=== PATIENT | female | born 2000 | race Two or more races ===

== ENCOUNTER 2020-05-03 20:13 | Emergency (ER) | payer OTHER, SELFPAY ==
[2020-05-03 20:14] VITALS: BP 136/85; PULSE 89; RESP 16; TEMP 36.4; BMI 36.0
--- NOTE | 2020-05-03 20:17 | RAD_ITS ---
STUDY: X-RAY - LEFT ANKLE REASON FOR EXAM: Female, 19 years old. patient twisted left ankle while roller skating TECHNIQUE: 3 view(s) of the ankle. COMPARISON: None. FINDINGS: Normal visualized distal tibia and fibula. Normal medial and lateral malleoli. Normal tibiotalar articulation and ankle mortise. Normal visualized talus and calcaneus. The visualized subtalar, talonavicular, calcaneocuboid and tarsal articulations are normal. The soft tissue structures are edematous laterally. RAD/Ankle min 3 Views IMPRESSION: No acute osseous injury. Possibly lateral soft tissue injury. Electronically Signed: Radha Palacio, at 20:53 EDT Tel , Service support ,
--- NOTE | 2020-05-03 20:55 | ED.DEP ---
ED Disposition - Plan for ED Patient: Instructions: ED Sprain Ankle W X Ray Referrals: NOT,DEFINED [Primary Care Provider] - Seng Waldron III, MD [STAFF PHYSICIAN] - 5-7 Days
[2020-05-03 21:40] VITALS: RESP 18
--- NOTE | 2020-05-16 21:44 | ED.VISSUMM ---
- ER Visit Summary Date of Service: 05/16/20 Chief Complaint: [Injury to left ankle] History of Present Illness: The patient is a 19 F [presents to the ER with an injury to her left ankle today while rollerskating. Patient states that she fell and hurt her ankle. Patient is able to bear some weight but painful. Patient has no medical history. She denies any other injuries.] Physical Examination: [HEENT-PERRLA, EOMI. Cranial nerves II through XII grossly intact. TMs clear. Mucous membranes moist. No adenopathy. Cardiovascular-regular rate and rhythm without murmur or ectopy Lungs-clear to auscultation, chest wall stable without crepitus or subcu emphysema Abdomen-normoactive bowel sounds, soft, nontender, no rebound or rigidity, no peritoneal signs. Extremities-intact ?4, normal range of motion, normal pulses. Left ankle-patient has diffuse all tissue swelling. She has pain to medial and lateral malleolus. She is neurovascular intact distally. She has no pain at the proximal fibular head. She has no pain at the base of the fifth metatarsal.] Test Results: [X-rays of the left ankle showed no fractures.] Emergency Department Course and Treatment: [Patient was given an air splint and crutches.] Treatment Plan: [To ice and elevate the extremity. She is to use ibuprofen or Tylenol for discomfort. Patient to follow-up with primary care physician in 5 to 7 days.] Disposition: [Discharged home in stable condition] Impression: [Left ankle sprain] This note was generated with [employer] dictation software. It may contain incorrect words, spelling, and punctuation that were not noted in review of the chart prior to signing ED Disposition - Plan for ED Patient: Disposition: Home or Assisted Living Instructions: ED Sprain Ankle W X Ray Referrals: Seng Waldron III, MD [STAFF PHYSICIAN] - 5-7 Days NOT,DEFINED [NON-STAFF] -
== END 2020-05-03 21:41 | disposition home or self-care (01) ==
PROVIDERS: Emergency Provider Emergency Medicine
DX: S93.402A Sprain of unspecified ligament of left ankle, initial encounter (principal); V00.128A Other non-in-line roller-skating accident, initial encounter; Y93.51 Activity, roller skating (inline) and skateboarding; Y92.9 Unspecified place or not applicable; Y99.8 Other external cause status
CPT/HCPCS: 73610; 99284

== ENCOUNTER 2022-08-29 14:25 | Outpatient (CLI) | payer OTHER, SELFPAY ==
[2022-08-29 15:07] LABS: Erythrocyte Sedimentation Rate 4 mm/hr (0-30)
[2022-08-29 15:09] LABS: Absolute Neutrophil Count 3.9 X10^3/uL (2.0-7.7); Basophil# 0.04 X10^3/uL; Basophil% 0.7 % (0-1); Eosinophils% 1.7 % (0-5); Hemoglobin 14.6 g/dL (12.0-15.0); Mean Corp Hgb Conc 34.8 g/dL (32-36); Mean Corpuscular Hgb 30.5 pg (27.0-32.0); Mean Corpuscular Volume 87.9 fL (81-99); Mean Platelet Vol. 9.4 fl (6.2-12.0); Monocyte# 0.42 X10^3/uL; NRBC Flagged by Analyzer 0 % (0-5); Neutrophil # 3.91 X10^3/uL (2.7-7.7); Neutrophil % 65.1 % (47-70); Platelet Count 279 K/mm3 (150-450); RBC Distribution Width CV 12.3 % (11.6-14.6); RBC Distribution Width SD 39.7 fl (35.1-43.9); Red Blood Count 4.78 M/mm3 (4.2-5.4)
[2022-08-29 15:39] LABS: ALB/GLOB Ratio 0.9 RATIO (0.9-2.4); AST(SGOT) 21 U/L (15-37); Alanine Aminotransfer ALT/SGPT 27 U/L (13-56); Albumin, Serum 3.7 g/dL (3.2-5.0); Alkaline Phosphatase 63 U/L (45-117); Anion Gap 5 (5-15); BUN 6 mg/dL (7-18); BUN/Creat Ratio 7.6 RATIO (10-20); CRP < 2.90 mg/L (0.0-3.0); Calcium,Total 9.2 mg/dL (8.5-10.1); Chloride 107 mmol/L (98-107); Creatinine, Serum 0.79 mg/dL (0.55-1.02); EST Glomerular Filtration Rate 96 mL/min (>60); Est Glom Filt Rate - Afr Amer 117 mL/min (>60); Globulin 3.9 g/dL (2.2-4.2); Glucose 97 mg/dL (74-106); LDH 215 U/L (84-246); Potassium 3.8 mmol/L (3.5-5.1); Protein, Total 7.6 g/dL (6.4-8.2); Sodium Level 138 mmol/L (136-145)
[2022-08-31 20:08] LABS: Cytoplasmic Ab (C-ANCA) 1:40 titer (Neg:<1:20); Endomysial Antibody IgA Negative (Negative); Immunoglobulin A 232 mg/dL (87-352)
[2022-08-31 20:53] LABS: Perinuclear Ab (P-ANCA) <1:20 titer (Neg:<1:20); t-Transglutaminase IgA <2 U/mL (0-3)
[2022-09-02 07:08] LABS: Anti-Centromere B Ab <0.2 AI (0.0-0.9); Anti-Chromatin <0.2 AI (0.0-0.9); Anti-Jo <0.2 AI (0.0-0.9); Anti-Scleroderma-70 AB 0.8 AI (0.0-0.9); Beef <0.10 kU/L (Class 0); Corn <0.10 kU/L (Class 0); Egg, Whole <0.10 kU/L (Class 0); Milk (Cow) <0.10 kU/L (Class 0); Peanut <0.10 kU/L (Class 0); Pork <0.10 kU/L (Class 0); RNP Ab <0.2 AI (0.0-0.9); SJOGREN'S Anti-SS-A test < 0.2 AI (0.0-0.9); SJOGREN'S Anti-SS-B test < 0.2 AI (0.0-0.9); Smith Ab <0.2 AI (0.0-0.9); Soybean <0.10 kU/L (Class 0); Wheat <0.10 kU/L (Class 0)
[2022-09-02 18:07] LABS: Albumin 3.8 g/dL (2.9-4.4); Alpha-1-Globulins 0.2 g/dL (0.0-0.4); Alpha-2-Globulins 0.7 g/dL (0.4-1.0); Gamma Globulin 1.4 g/dL (0.4-1.8); Immunoglobulin A 242 mg/dL (87-352); Immunoglobulin G 1366 mg/dL (586-1602); Immunoglobulin M 127 mg/dL (26-217); PROEL- TOTAL PROTEIN 7.2 g/dL (6.0-8.5)
[2022-09-03 13:26] LABS: Anti-dsDNA Ab 1 IU/mL (0-9); Chocolate <0.10 kU/L (Class 0)
[2022-09-03 14:28] LABS: Immunoglobulin E 94 IU/mL (6-495)
== END 2022-08-29 23:59 | disposition home or self-care (01) ==
PROVIDERS: Referring Provider Internal Medicine Gastroenterology; Visit Provider Internal Medicine Gastroenterology
DX: R10.9 Unspecified abdominal pain (principal)
CPT/HCPCS: 36415; 80053; 82784; 82785; 83516; 83615; 84165; 85025; 85652; 86003; 86005; 86140; 86225; 86235; 86255; 86256; 86334